=== PATIENT | female | born 1960 | race Two or more races ===

== ENCOUNTER 2018-12-26 10:46 | Outpatient (CLI) | payer OTHER | END 2018-12-26 10:54 | disposition home or self-care (01) | LOC: RAD 501 10:46 | DX: M15.8 Other polyosteoarthritis (principal) ==

== ENCOUNTER 2021-08-20 16:07 | Outpatient (CLI) | payer OTHER | END 2021-08-20 16:17 | disposition home or self-care (01) | LOC: RAD 16:07 | DX: M21.061 Valgus deformity, not elsewhere classified, right knee (principal); M25.561 Pain in right knee ==

== ENCOUNTER 2022-06-28 19:32 | Emergency (ER) | payer OTHER ==
[~2022-06-28] VITALS: Ht 172.7 cm; Wt 88.5 kg
[2022-06-28] MEDS ORDERED: CEPHALEXIN500 MG PO (22:05)
== END 2022-06-28 22:16 | disposition home or self-care (01) ==
LOC: ER 19:32
DX: S51.812A Laceration without foreign body of left forearm, initial encounter (principal); W25.XXXA Contact with sharp glass, initial encounter; Y93.9 Activity, unspecified; Y92.9 Unspecified place or not applicable; Y99.9 Unspecified external cause status

== ENCOUNTER 2025-04-15 22:30 | Emergency (ER) | payer OTHER ==
[~2025-04-15] VITALS: Ht 172.7 cm; Wt 91.6 kg
[~2025-04-15 22:30] MED LIST: CEPHALEXIN500 MG PO
[2025-04-16] MEDS ORDERED: CLINDAMYCIN PHOSPHATE 150 MG/ML (600mg) IM STA (00:20)
[2025-04-16] MEDS ORDERED: CLINDAMYCIN PHOSPHATE 150 MG/ML (300mg) ONE (00:20)
== END 2025-04-16 00:43 | disposition home or self-care (01) ==
LOC: ER 22:30
DX: L03.115 Cellulitis of right lower limb (principal); Z88.8 Allergy status to other drugs, medicaments and biological substances